=== PATIENT | male | born 1950 | race Caucasian/White ===

== ENCOUNTER 2023-12-16 05:59 | Day surgery (SDC) | payer OTHER, SELFPAY ==
--- NOTE | 2023-12-15 13:11 | PDOC.DSDIS_ITS ---
Date of service: 12/16/23 Time of Service: 09:21 Discharge Plan Disposition Patient Disposition: Home Condition: Good Discharge Details Reason For Visit: left inguinal hernia Attending Provider: Ethel Yoo Primary Care Provider: Harrison Marshall Home Meds and New Rx's Prescriptions: New tramadol 50 mg Tablet 50 mg PO Q4H PRN PRN (Reason: Pain) Qty: 14 0RF Continued losartan 50 mg tablet 50 mg PO DAILY nitroglycerin 0.4 mg tablet, sublingual 0.4 mg sublingual Q5M PRN Rx Instructions: do not exceed 3 doses per episode pantoprazole 40 mg tablet,delayed release (DR/EC) 40 mg PO DAILY Held aspirin 81 mg tablet,delayed release (DR/EC) 81 mg PO DAILY Hold Instructions: Resume on 12/22/23. clopidogrel 75 mg tablet 75 mg PO DAILY Hold Instructions: Resume on 12/22/23. Discharge Instructions Additional Instructions: Dr. Yoo HERNIA REPAIR ? POSTOPERATIVE INSTRUCTIONS Patients who have this type of surgery can usually be expected to return to work within two weeks and have minimal amounts of discomfort. ? ACTIVITY: The day of surgery should be spent resting. However, you can be up for short periods of time, I.E., going to the bathroom or kitchen. Avoid lifting or straining. On the day following surgery, you can be up and about as desired. ? LIFTING: Restrict your lifting to no more than five (5) pounds for two weeks after surgery. ??We will decide when you are done with restrictions and when you can return to work, at your follow-up appointment.? No sexual activity for two weeks.? ? DIET: There are no dietary restrictions following surgery. However, you may want to start with small amounts of liquids to avoid nausea the day of surgery. ? INCISION CARE: You will notice purple skin glue closing the incision.? Do not peel this off- it will wear off on its own.? After 24 hours you may shower. The dressing may be replaced for comfort, but is not necessary. ?An ice bag may be applied to the incision for 72 hours following surgery. ? SIGNS OF INFECTION: It is not unusual to have some black and blue discoloration of the skin around the incision, but also scrotum and penis.? ?It will slowly disappear. If you have any increased redness, drainage, fever (above 100 degrees), please contact your doctor for an examination. ? DISCOMFORT: You may expect to have some mild discomfort at the incision sight. If severe pain develops you should contact your doctor for further instructions. ? URINATION: Patients who have surgery occasionally have problems urinating. If you experience problems and are not able to urinate within 6 hours following your surgery, please call your doctor immediately or go to your nearest [facility] Room for evaluation. ? DRIVING: NO driving for three (3) days after surgery, or if you are still taking narcotic pain medication.? ? MEDICATIONS: Alternate Tylenol 1000mg by mouth every 8 hours and Ibuprofen 600mg every 6 hours. ?Make sure you take ibuprofen with food and not on an empty stomach. ?Take the Tylenol and ibuprofen continuously for the first 72hrs- not just when you have pain.? Use the tramadol for breakthrough pain/pain >7.? Use ICE!?? Twenty minutes on, and then off, continuously for the first 72hours. If you are taking narcotic pain medication, follow the instructions on the label and do not drive. Pain medications can make you very constipated. Make sure you are moving your bowels daily. If not, take Miralax or Milk of Magnesia.?? Anesthesia makes you very constipated.? Take a dose of milk of magnesia the morning after surgery. ? REPORT: Unusual swelling, severe pain, unresolved nausea, signs of infection, or difficulty in urination to your surgeon. Follow up in clinic with Dr. Yoo in 2 weeks.? [phone] Activity:: see above Remove Dressings/Wound Care:: 24 hours Shower/Bathe:: 24 hours Diet:: As Tolerated Discharge Orders Discharge Orders: Discharge Order (Routine); Ordered 12/16/23 Ordered By: Ethel Yoo DS: Diagnosis Discharge Diagnosis (1) CAD (coronary artery disease): Status: Chronic (2) Myocardial infarction: Status: Chronic (3) Left inguinal hernia: Status: Acute Asessment and Plan: The patient is doing well post-op from their left direct inguinal hernia surgery.? They are having no nausea or vomiting. They are tolerating liquids and a snack. The pt is not having any chest pain or SOB.? Their pain is adequately controlled. They have been able to urinate.? ?HEENT:? no eye pain/drainage/redness/swelling. Mild sore throat ?Cardio- NSR, no chest pain, BP stable- see VS record ?Pulm: no sob or productive cough. No hemoptysis ?Incision- dressing is c/d/i w/ no excessive bleeding or drainage ?I discussed with the patient the findings at the time of surgery and the patient?s progress. ?We reviewed expectations at home; what the patient could expect for recovery time, and in the post-operative period.? We discussed the importance of walking to avoid blood clots and pneumonia.? We discussed and reviewed the patient's post-operative wound care and dressing needs.?? We reviewed their step-thomas pain management plan, Rx called to the pharmacy of their choice.? We reviewed activity and limitations-see discharge instructions. We reviewed warning signs, and when to seek medical attention- see d/c instructions.?? Patient was given a postoperative follow-up appointment. Patient verbalized understanding of their postoperative instructions, how do to take care of themselves and their incision, and the pain management plan. Please see discharge instructions.? (4) Hyperlipidemia: (5) Parkinson disease:
--- NOTE | 2023-12-15 20:48 | HPE_ITS ---
Date of service: 12/16/23 Time of Service: 07:32 Assessment and Plan Assessment and plan (1) CAD (coronary artery disease): Status: Chronic (2) Myocardial infarction: Status: Chronic (3) Left inguinal hernia: Status: Acute Assessment and plan: I discussed the nature of inguinal hernias with the patient: how they form, and consequences of incarceration.? We discussed the warning signs of incarcerations (Severe pain/hardness and inability to reduce the hernia/vomiting/redness and fever) ?and when/how to seek medical attention (our office/PCP or ED).? ?I discussed the surgery in detail and the complications related to the surgery and the anesthesia.? I do recommend that the pt have a nerve block for postop pain control.? We also discussed multi-modality pain management.? Pt. expressed understanding; all questions were answered to the patient satisfaction and they do wish to proceed with surgery.? Patient was given an educational booklet & and a copy of the postop instructions and expressed understanding of how to care for themselves after surgery. Risks of the surgery include but are not limited to: Bleeding/infection/pneumonia/damage to blood vessels or bladder or?bowels/blood clots or PE/chronic pain/urinary retention/chronic numbness/reoccurrence/reaction to mesh requiring removal/damage to testicle or sterility/complications of anesthesia.?We also discussed the possibility of postop urinary retention and swelling/ bruising. ?The pt will have a pre-Op PE to ensure fitness for anesthesia, and preOp cardiac testing as deemed necessary. ?The procedure will be done with abx and under sterile conditions. This is an outpt day surgery.? ??The pt requires a ride home from surgery and someone to stay with the pt for 24 hrs after anesthesia.? No lifting over 5 pounds for 2-3 weeks after surgery.? Also take Miralax postop to avoid constipation. (4) Hyperlipidemia: (5) Inguinal hernia of left side without obstruction or gangrene: (6) Parkinson disease: History of Present Illness Narrative: Patient is here today for left inguinal hernia repair. They not having any chest pain or shortness of breath, currently.? They are not experiencing any fever or chills.? They deny any productive cough or upper respiratory tract infection signs or symptoms.? They are not having abdominal pain, or nausea and vomiting.? They have not had any changes in medications, past medical history or past surgical history since previously being seen in the office. They have not had any accidents or have been in the ER since the clinic pre-operative evaluation. ??I reviewed the procedure with the patient today, including risks and benefits of the procedure, and what they could expect at home for recovery.? All questions are answered to the patient?s satisfaction today, and they are stable to proceed with the proposed procedure. (2) Left inguinal hernia: I discussed the nature of inguinal hernias with the pt and how they form, and consequences of incarceration.? We discussed the warning signs of incarcerations (Severe pain/hardness and inability to reduce the hernia/vomiting/redness and fever) ?and when/how to seek medical attention (our office/PCP or ED).? ?I discussed the surgery in detail and the complications related to the surgery and the anesthesia.? I do recommend that the pt have a nerve block for postop pain control.? We also discussed multi-modality pain management.? Pt. expressed understanding; all questions were answered to the patient satisfaction and they do wish to proceed with surgery.? Patient was given an educational booklet & and a copy of the postop instructions and expressed understanding of how to care for themselves after surgery. Risks of the surgery include but are not limited to:Bleeding /infection/pneumonia/damage to blood vessels or bladder or?bowels/blood clots or PE/chronic pain/urinary retention/chronic numbness/reoccurrence/reaction to mesh requiring removal/damage to testicle or sterility/complications of anesthesia.?We also discussed the possibility of postop urinary retention or bruising. ?The pt will have a pre-Op PE to ensure fitness for anesthesia, and preOp cardiac testing as deemed necessary. ?The procedure will be done with abx and under sterile conditions. This is an outpt day surgery.? ??The pt requires a ride (3) Hyperlipidemia: (4) Parkinson disease: (5) CAD (coronary artery disease): (6) Myocardial infarction: HPI RN: Pt here for left ingunial hernia repair was set to have it repaired in Apr then had heart attack, with 2 stents placed at [facility]. Pt denies pain at this time, states standing on concrete seems to be the worst. [place] 05/17. Plavix 04/2024. Patient recently saw his tomb maker helper at the [facility] that said it was safe for him to come off of the aspirin and Plavix for his surgery. Realistically I think I would just stop the Plavix and except the risk of bleeding or bruising and keep him on the baby aspirin. The patient understands the plan agrees. He has had this inguinal hernia for some time. Doing physical activity does aggravate it, and occasionally when trying to move his bowels. On exam today I cannot reduce the hernia. It is mildly tender. It is not incarcerated. He had a right inguinal hernia repair done remotely. He had no problems with the mesh, the surgery, the anesthesia. We reviewed today what he can expect during hernia surgery, recovery time, and risks. Patient does wish to have the procedure done. Again he did get clearance from his tomb maker helper at the [facility]. they were able to obtain this paperwork. Review of Systems All systems reviewed & are unremarkable except as noted in HPI and below PFSH All Active Problems Myocardial infarction (Chronic) 05/17. Treated with 2 stents at [facility] [place]. CAD (coronary artery disease) (Chronic) Left inguinal hernia (Acute) Jaw claudication (Acute) Tremor (Chronic) Numbness of foot (Chronic) Medical History Inguinal hernia of left side without obstruction or gangrene (~04/2023) PTSD (post-traumatic stress disorder) Per no potential triggers Parkinson disease Hyperlipidemia Failure of erection Tremor Surgical History History of cataract surgery History of colonoscopy S/P right inguinal hernia repair (~2012) Family History Father Heart disease Social History Smoking/Tobacco Use Status: Never Smoking risk assessment performed?: Yes Alcohol Intake: current Alcohol Intake frequency: a few times a week Drug use: Never Substance use type: does not use Household members: none Housing: house Number of Children: 2 current occupation: Retired. [employer] work Current gender identity: male Do you feel safe at home: Yes Do you feel safe in your relationship?: Yes Additional Social history: UTAP Meds Allergies and Home Medications Allergies Allergy/AdvReac Type Severity Reaction Status Date / Time [id number] Reductase Allergy Severe leg cramps Verified 12/16/23 06:20 Inhibitor Home Medications ?Medication ?Instructions ?Recorded ?Confirmed ?Type aspirin 81 mg tablet,delayed 81 mg PO DAILY 11/12/23 12/16/23 History release clopidogrel 75 mg tablet 75 mg PO DAILY 11/12/23 12/12/23 History losartan 50 mg tablet 50 mg PO DAILY 11/12/23 12/16/23 History nitroglycerin 0.4 mg sublingual 0.4 mg sublingual Q5M PRN 11/12/23 12/16/23 History tablet pantoprazole 40 mg tablet,delayed 40 mg PO DAILY 11/12/23 12/16/23 History release tramadol 50 mg tablet 50 mg PO Q4H PRN PRN Pain #14 tabs 12/15/23 Rx Exam Narrative Exam Narrative: PHYSICAL EXAM GENERAL APPEARANCE: Alert, healthy appearance, oriented, x 3,? in no acute distress HYDRATION: Well hydrated HEAD, EYES, EARS, NECK, THROAT: Head is normocephalic, pupils equal, round, reactive to light and accommodation, ocular movement intact, sclera clear and no jaundice. ?Dentition intact. LUNGS: normal respiration/normal chest excursion. ?Clear to auscultation bilaterally. ?No wheeze. ?HEART: Regular rate and rhythm. no murmurs? ABDOMEN: soft and non-tender to palpation.? Normal bowel sounds.? left inguinal hernia. s/p R inguinal hernia repair. Time Spent Time spent with Patient: <40 minutes Time was spent: preparing to see the patient(eg.review tests), obtaining and/or reviewing separately otained hiistory, ordering medications,tests, procedures, referring, communicating with other health pulmonary care nurse, indepentently interpreting results, counseling the patient, care coordination and other
[2023-12-16] VITALS (20 sets, daily range): BP systolic 104–159; BP diastolic 52–86; PULSE 56–74; RESP 14–23; TEMP 36.1–37; O2SAT 94–100; BMI 26.9
[2023-12-16] MEDS: Acetaminophen 500 MG TAB 1000 MG PO (07:07)
[2023-12-16] MEDS: Lactated Ringers 1,000 ML 80 ML IV (07:07)
[2023-12-16] MEDS: Gabapentin 300 MG CAP 600 MG PO (07:08)
--- NOTE | 2023-12-16 07:19 | W.ANESPRE ---
General Info Date of Service Date Performed: 12/16/23 Height: 5 ft 9 in Weight: 82.5 kg Body Mass Index (BMI): 26.9 Surgical Procedure: Operation Date: 12/16/23 07:40 Proposed Procedure Side Surgeon p Herniorrhaphy Inguinal w/Mesh Left Ethel Yoo DO Pre-Op Diagnosis Post-Op Diagnosis Left inguinal hernia Meds Allergies and Home Medications Allergies Allergy/AdvReac Type Severity Reaction Status Date / Time [id number]-[id number] Reductase Allergy Severe leg cramps Verified 12/16/23 06:20 Inhibitor Home Medication ?Medication ?Instructions ?Recorded aspirin 81 mg tablet,delayed 81 mg PO DAILY 11/12/23 release clopidogrel 75 mg tablet 75 mg PO DAILY 11/12/23 losartan 50 mg tablet 50 mg PO DAILY 11/12/23 nitroglycerin 0.4 mg sublingual 0.4 mg sublingual Q5M PRN 11/12/23 tablet pantoprazole 40 mg tablet,delayed 40 mg PO DAILY 11/12/23 release tramadol 50 mg tablet 50 mg PO Q4H PRN PRN Pain #14 tabs 12/15/23 Current Visit Medications: Current Medications Generic Name Dose Route Start Last Admin Trade Name Freq PRN Reason Stop Dose Admin Acetaminophen 1,000 mg 12/16/23 05:00 12/16/23 07:07 Acetaminophen 500 Mg Tab PO 12/16/23 16:00 1,000 mg PREOP CHLOE Administration Gabapentin 600 mg 12/16/23 05:00 12/16/23 07:08 Gabapentin 300 Mg Cap PO 12/16/23 16:00 600 mg PREOP CHLOE Administration Ringer's Solution 1,000 mls @ 80 mls/hr 11/25/23 06:00 12/16/23 07:07 IV 12/24/23 23:59 80 mls/hr INFUSION CHLOE Administration Cefazolin Sodium/Dextrose 2 gm in 50 mls @ 100 mls/hr 12/16/23 05:00 Ancef Duplex IVPB 12/16/23 16:00 PREOP CHLOE Ondansetron HCl 4 mg/ Sodium 52 mls @ 200 mls/hr 12/16/23 01:08 Chloride IVPB 01/15/24 01:07 Q6H PRN PRN IV Miscellaneous Supplies 1 each 11/25/23 06:00 Iv Access IV 07/31/24 23:59 DIRECTED CHLOE Ketorolac Tromethamine 15 mg 12/16/23 01:08 Ketorolac 15 Mg/Ml Vial IVP 12/21/23 01:07 Q6H PRN PRN Morphine Sulfate 2 mg 12/16/23 01:08 Morphine 4 Mg/Ml Syr IVP 01/15/24 01:07 Q1H PRN PRN Sodium Chloride 0 ml 11/25/23 06:00 Normal Saline Flush 10 Ml Syr IV 12/24/23 23:59 PRN PRN Sodium Chloride 0 ml 11/25/23 06:00 Normal Saline 10 Ml Vial IJ 12/24/23 23:59 DIRECTED PRN Sterile Water 0 ml 11/25/23 06:00 Water,Injection,Sterile 10 Ml Vial IJ 12/24/23 23:59 DIRECTED PRN Tramadol HCl 50 mg 12/16/23 01:08 Tramadol 50 Mg Tab PO 01/15/24 01:07 Q4H PRN PRN Pain PFSH Active Problems Active Problems: Problem Status Onset Code Myocardial infarction Chronic I21.9 CAD (coronary artery disease) Chronic I25.10 Left inguinal hernia Acute K40.90 Jaw claudication Acute M26.69 Tremor Chronic R25.1 Numbness of foot Chronic R20.0 Medical History Medical History Inguinal hernia of left side without obstruction or gangrene (~04/2023) PTSD (post-traumatic stress disorder) Per no potential triggers Parkinson disease Hyperlipidemia Failure of erection Tremor Surgical History Surgical History History of cataract surgery History of colonoscopy S/P right inguinal hernia repair (~2012) Tobacco Smoking/Tobacco Use Status: Never Alcohol Alcohol Intake: current Alcohol intake frequency: a few times a week Substance Use Substance use: Never Substance use type: does not use Vital Signs and Lab Results Vital Signs Most Recent Vital Signs in EMR: Most Recent Vital Signs Temp Pulse Resp BP Pulse Ox 37.0 C 66 16 159/86 H 97 12/16/23 07:13 12/16/23 07:13 12/16/23 07:13 12/16/23 07:13 12/16/23 07:13 Lab Results Blood Type / Crossmatch: No Data to Display Complete Blood Count: No Data to Display Complete Metabolic Panel: No Data to Display Liver Function Panel: No Data to Display Coagulation Panel: No Data to Display Cardiac Panel: No Data to Display Arterial Blood Gas: No Data to Display Venous Blood Gas: No Data to Display Pancreas Panel: No Data to Display Thyroid Panel: No Data to Display Infectious Disease: No Data to Display Blood Cultures: No Data to Display Toxicology Panel: No Data to Display Anesthesia Assessment and Plan Anesthesia History Personal History: No History of Anesthesia Complications Family History: Family History Unknown Exercise Tolerance Exercise Tolerance: Metabolic Equivalents>4 Pertinent Negatives Pertinent Negatives: No Symptoms of GERD, No Major Pulmonary Symptoms or Complaints and No History of CVA/TIA Cardiac & Pulmonary Exam Cardiac Exam: Normal S1/S2 Heart Sounds Pulmonary Exam: Clear Bilateral Breath Sounds Implantable Cardiac Device Does patient have a Pacemaker or an ICD?: No Airway Exam Known Difficult Airway: No Mallampati Class: 2 Mouth Opening: Normal (> 3cm) Thyromental Distance: Greater than 3 cm Neck Range of Motion: Full ROM Neck Circumference: Normal Teeth Condition: Normal Dentition and Removable Dentures/Plates Upper ASA Classification ASA Score: ASA 3 Emergency Case?: No NPO Status NPO Status: NPO Clears >2 hours, Solids >8 hours Anesthesia Plan Resuscitation Status: Full Code Anesthesia Technique: General Anesthesia Airway Planned: LMA Pain Management: Surgeon and patient request nerve block Monitors Used: Standard Monitors
[2023-12-16] MEDS: ceFAZolin 2 GM/50 ML BAG IVPB (07:38)
--- NOTE | 2023-12-16 08:00 | ANES.NERVE_ITS ---
Nerve Block Single Injection Procedure Date and Time Date Performed: 12/16/23 Procedure Start: 07:49 Location Where Procedure Performed Procedure Location: Operating Room Procedure Stop: 07:57 Reason Performed: Postoperative Analgesia Requesting Provider: Ethel Yoo Timeout Performed Timeout Performed: Yes Monitoring Used ECG, Blood Pressure, SpO2 and See EMR for corresponding vital signs Sterility Sterility: Hand Hygiene, Surgical Cap, Surgical Mask, Sterile Gloves and Ch lorhexidine Sedation Given During Procedure Sedation Given (Indicate Dose Given): No Sedation given Patient Mental Status Patient Mental Status: Performed under general anesthesia Nerve Block 1st Nerve Block: Laterality: Left Block Type: TAP Unilateral Ultrasound Image Saved?: Yes Needle / Catheter Used: 100mm SonoPlex II Local Anesthetic Bolus (Indicate Dose Given): Lidocaine used for local infiltration of skin, Injected in 3-5ml increments after negative blood aspiration, Bupivacaine 0.25% Dose:: 20ml and Exparel Dose:: 10ml Additives (Indicate Dose Given): None Ultrasound: Sterile probe cover and gel used Nerve Stimulator: Not Used Paresthesia: None Procedure Tolerated: No Complications and Patient tolerated well Procedure Outcome: Successful Performed By: Diaz Pratt
[2023-12-16] MEDS: Bupivacaine 0.25% Pres-Free W/EPI 30 ML VIAL (08:13)
--- NOTE | 2023-12-16 09:13 | W.PM.OP ---
Date of service: 12/16/23 Time of Service: 09:13 Operative Note Operative Note DATE OF PROCEDURE: 12/16/23 PRE-OP DIAGNOSIS: Left inguinal hernia POST-OP DIAGNOSIS: same (In direct) PROCEDURE: Open inguinal hernia with mesh SURGEON: Ethel Frias COMMUNITY ENGAGEMENT COORDINATOR: Varsha Castañeda ANESTHESIA TYPE: Local By Surgeon and General LMA/ETT Refer to Anesthesia Record ESTIMATED BLOOD LOSS: 5 PATHOLOGY: none sent COMPLICATIONS: None Patient was transported to: PACU Patient's condition: stable Procedure Description: INDICATIONS: The pt is here today for surgery regarding symptomatic -left-- inguinal hernia that has failed outpatient conservative medical management and he is here today for repair. Informed consent was obtained, explaining risks and benefits of the procedure including but not limited to bleeding, infection, pneumonia, blood clots, chronic pain, chronic numbness, damage to testicle resulting in removal, recurrence of hernia, reaction to Mesh necessitating removal, and other unforetold complications, and complications of anesthesia-which were addressed by the MANAGER M[facility]AGE DEPARTMENT. The patient is marked in preOp prior to the procedure DESCRIPTION OF PROCEDURE:? The pt is then brought to the operative room suite. Anesthesia was administered per the Department of Anesthesia. ?A nerve block was performed by anesthesia under US guidance. The patient was prepped and draped in the usual sterile fashion using ChloraPrep scrub solution. Pause for the cause was done. He did receive preop IV antibiotics, and 30 mL of .25% Marcaine w/ epinephrine was used for local anesthetization. A #12 blade was used to make an incision over the external ring. Electrocautery used to provide hemostasis and dissect down to the fascia. The fascia was pretty much obliterated and there was nothing to open. The cord is elevated. The nerve was not identified. There is a cord lipomas- that is ecised w/ cautery. .? Electro-cautery is used to provide hemostasis. A Holli drain was placed around the cord to assist in mobilization. The cord was explored. ?There was is large hernia sac on the cord. There is no direct hernia pushing through the floor. The hernia sac is dissected off the cord using a combination of blunt dissection and electrocautery.? Electrocautery is used to provide hemostasis.?? There are no contents within the hernia sac.?High Ligation of the hernia sac is performed, the hernia sac is than inverted and returned to the abdominal cavity.? A large size plug is than inserted into the defect through the internal ring, and over sewn to tighten up the ring with 2-0 vicryl.? Please see RN notes from [employer] number of the [employer] mesh patch/plug.? The cord structures are still able to freely move through the ring itself.? The patch was then placed onto the floor, and using 2-0 Vicryl, sewn into the pubic tubercle and the shelving portions of the inguinal ligament, in the standard Lichenstein fashion.? ?The tails of the mesh are brought around the cord, sewn together w/ 2-0 Vicryl, and tucked under the external oblique.? The wound was copiously irrigated. There was no bleeding noted. The drain was removed. All structures are returned to normal anatomical position. The nerve is not sewn into the mesh, nor caught up in any sutures. The external oblique is dissected out and is re-approximated using 2-0 vicryl in a running fashion. ?Deep tissue was approximated with 3-0 Vicryl in a running fashion, and skin was approximated with 4-0 Monocryl in a running subcuticular fashion. Skin glue and sterile dressings are applied. The patient tolerated the procedure without complications to recovery in stable condition. ETHEL FRIAS, DO
--- NOTE | 2023-12-16 11:13 | W.ANESPOSTOP ---
Postoperative Evaluation Date, Time and Location Date Performed: 12/16/23 Time Performed: 10:25 Patient Location: Day Surgery Unit Vital Signs Most Recent Imported Vital Signs: Most Recent Vital Signs Temp Pulse Resp BP Pulse Ox 36.3 C L 56 L 17 130/79 97 12/16/23 10:22 12/16/23 10:22 12/16/23 10:22 12/16/23 10:22 12/16/23 10:22 Pain Score Most Recent Pain Score: Most Recent Pain Score Pain Level 0 12/16/23 10:22 Assessment Mental Status: Awake (Alert & Oriented to Patient Baseline) Airway and Respiratory Function: Patent airway with normal (patient baseline) respiratory exam Cardiovascular Function: Hemodynamically Stable Hydration Status: Adequately Hydrated Nausea & Vomiting: No Nausea or Vomiting Pain: Pt. Denies Any Pain Peripheral Nerve Block: Regional nerve block not resolved at time of post operative discharge
== END 2023-12-16 11:19 | disposition home or self-care (01) ==
PROVIDERS: PCP Family Medicine; Visit Provider Surgery
PROC: (CPT 49505; principal; 2023-12-16 07:30)
DX: K40.90 Unilateral inguinal hernia, without obstruction or gangrene, not specified as recurrent
CPT/HCPCS: 49505; 76942; C1781; C9290; J0665; J0690; J1100; J1885; J2001; J2371; J2405; J2704

== ENCOUNTER 2024-06-24 14:01 | Emergency (ER) | payer OTHER, SELFPAY ==
--- NOTE | 2024-06-24 14:00 | RT.EKG_ITS ---
APPROVED REPORT Exam: Resting ECG Reason for Exam: weakness Patient Location: E HR:70 bpm ECG Measurements Heart Rate 70 AXIS MO 144 P 49 QRSd 89 QRS 65 QT 382 T 48 QTc 412 Conclusion Sinus rhythm...normal P axis, V-rate 60- 99
[2024-06-24 14:12] VITALS: BP 158/80; PULSE 68; RESP 15; TEMP 36.6; O2SAT 96
--- NOTE | 2024-06-24 14:45 | DI.RAD_ITS ---
Exam(s) XR CHEST 2V PA LATERAL EXAM: XR CHEST 2V PA LATERAL CLINICAL HISTORY: ?chf. TECHNIQUE: 2D digital imaging was performed. COMPARISON: No exams were available for comparison FINDINGS: 2 views: Heart size is normal. The mediastinum is not widened. Lungs are clear. No infiltrates nor pleural effusions. No evidence of pulmonary edema, as per reque st. IMPRESSION: No acute pulmonary findings. DATA REPOSITORY: RADIATION DOSE DELIVERED:
--- NOTE | 2024-06-24 14:47 | W.ED.GENAD ---
Discharge Plan Disposition Patient Disposition: Home Condition: Stable Discharge Details Clinical Impression: Fatigue Primary Care Provider: Harrison Marshall ED Provider: Ian Shelley Home Meds and New Rx's Prescriptions: Continued clopidogrel 75 mg tablet 75 mg PO DAILY losartan 50 mg tablet 50 mg PO DAILY nitroglycerin 0.4 mg tablet, sublingual 0.4 mg sublingual Q5M PRN Rx Instructions: do not exceed 3 doses per episode pantoprazole 40 mg tablet,delayed release (DR/EC) 40 mg PO DAILY No Action aspirin 81 mg tablet,delayed release (DR/EC) 81 mg PO DAILY Discharge Instructions Additional Instructions: Your blood work and chest x-ray did not show any concerning findings Follow-up with your primary care provider if symptoms continue in 1 to 2 weeks If you feel more ill or have new symptoms such as severe chest pain return to the emergency department for reevaluation HPI General Mode of arrival: ambulatory. Date/Time Provider Initiated Documentation: 06/24/24 14:08. Limitations to Documentation: no limitations. Information obtained by: patient. HPI Narrative: HISTORY OF PRESENT ILLNESS The patient presents for evaluation of fatigue. He reports persistent fatigue, characterized by excessive sleepiness. He is not experiencing any chest pain, respiratory distress, or episodes of vomiting. Additionally, he does not have any lower extremity discomfort or edema. Related Data Home Medications ?Medication ?Instructions ?Recorded ?Confirmed aspirin 81 mg tablet,delayed 81 mg PO DAILY 11/12/23 06/24/24 release clopidogrel 75 mg tablet 75 mg PO DAILY 11/12/23 06/24/24 losartan 50 mg tablet 50 mg PO DAILY 11/12/23 06/24/24 nitroglycerin 0.4 mg sublingual 0.4 mg sublingual Q5M PRN 11/12/23 06/24/24 tablet pantoprazole 40 mg tablet,delayed 40 mg PO DAILY 11/12/23 06/24/24 release Allergies Allergy/AdvReac Type Severity Reaction Status Date / Time Eknkotw-QBC-ExR Reductase Allergy Severe leg cramps Verified 06/24/24 14:15 Inhibitor General Stated Complaint: [facility] ARABELLA: 3 Review of Systems Narrative: REVIEW OF SYSTEMS Negative for chest pain, respiratory distress, or episodes of vomiting. Negative for lower extremity discomfort or edema. Exam Narrative Exam Narrative: PHYSICAL EXAM Lungs are clear. Abdomen is soft and nontender. No JVD Const General: no acute distress Orientation: alert HENMT Head: normal to inspection Ears: external ears normal General nose exam: external nose normal Mouth: moist mucous membranes Eyes General: appearance normal, both eyes and all related structures Neck Neck: normal visual inspection Resp Effort & Inspection: normal respiratory effort and able to speak in complete sentences Auscultation: clear to auscultation bilaterally Cardio Jugular venous pressure: no JVD Rate: regular rate Skin General skin exam: no rashes or lesions noted Neuro General: patient alert and patient oriented x3 Extrem General: normal to inspection, capillary refill normal and no pedal edema Course Vital Signs Vital signs: Vital Signs Temperature 36.6 C 06/24/24 14:12 Pulse 68 06/24/24 14:12 Respiratory Rate 15 06/24/24 14:12 Blood Pressure 158/80 H 06/24/24 14:12 Pulse Oximetry 96 06/24/24 14:12 Temperature 36.6 C 06/24/24 14:12 Temperature Source Oral 06/24/24 14:12 Pulse 68 06/24/24 14:12 Respiratory Rate 15 06/24/24 14:12 Blood Pressure 158/80 H 06/24/24 14:12 Blood Pressure Position Sitting 06/24/24 14:12 Pulse Oximetry 96 06/24/24 14:12 Oxygen Delivery Method Room Air 06/24/24 14:12 Oxygen Flow Rate 0 06/24/24 14:12 Medical Decision Making ASSESSMENT AND PLAN 1. Fatigue. He reports feeling tired all the time and sleeping a lot. His lungs sound clear, and his abdomen is soft and nontender. Blood work and a chest x-ray have been ordered to further investigate the cause of his fatigue. He is well-appearing has no chest pain so I doubt entities such as ACS but will check troponins. No tearing back pain to suggest dissection. this patient consented to using [facility] cop[employer] Patient's lab work shows no significant findings, has a creatinine of 1.4 and unclear if this is new or not. Delta troponin negative, chest x-ray negative. He is stable and still appears well. Discussed results with him and given reassuring workup feel he is stable for discharge and can follow-up with his PCP if symptoms continue. When he had his flulike symptoms he never checked for COVID which if it was he could be experiencing long COVID symptoms. Return precautions given Medical Records Medical records reviewed: Yes I reviewed the patient's medical records. Lab Data Lab results reviewed: Yes I reviewed the patient's lab results. ECG Data Attestation: I personally reviewed and interpreted this ECG (s) as follows: Prior ECG tracings: not available for review Quality:SDOH Health Related Social Needs: No Data to Display PFSH All Active Problems (Updated 06/24/24 @ 16:51 by Ian Shelley MD) Fatigue (Acute) Myocardial infarction (Chronic) 05/17. [place] 2 [place] [facility] [place] [facility] [place] CAD (coronary artery disease) (Chronic) Left inguinal hernia (Acute) Jaw claudication (Acute) Tremor (Chronic) Numbness of foot (Chronic) Medical History (Updated 06/24/24 @ 16:51 by Ian Shelley MD) Inguinal hernia of left side without obstruction or gangrene (~04/2023) PTSD (post-traumatic stress disorder) Per no potential triggers Parkinson disease Hyperlipidemia Failure of erection Tremor Surgical History (Updated 12/17/23 @ 14:26 by Anne Arreguin) Hx of inguinal hernia repair (~11/2023) left side History of cataract surgery History of colonoscopy S/P right inguinal hernia repair (~2012) Family History Father Heart disease Social History Smoking/Tobacco Use Status: Never Smoking risk assessment performed?: Yes Alcohol Intake: current Alcohol Intake frequency: a few times a week Drug use: Never Substance use type: does not use Household members: none Housing: house Number of Children: 2 current occupation: Retired. [employer] work Current gender identity: male Do you feel safe at home: Yes Do you feel safe in your relationship?: Yes Additional Social history: UTAP POCUS Exam (ED) Limited Cardiac Exam REASON FOR EXAM: Other indication: fatigue, coronary artery disease VISUALIZED STRUCTURES: Left ventricle and Right ventricle VIEW OBTAINED: Parasternal long-axis PERTINENT FINDINGS/IMPRESSION: No LV dysfunction Exam complete
[2024-06-24 15:13] LABS: Abs Immature Grans 0.02 10^3/uL (0.0-0.06); Absolute Basophil Count 0.03 10^3/uL (0.0-0.2); Absolute Eosinophil Count 0.06 10^3/uL (0.0-0.7); Absolute Lymphocyte Count 1.14 10^3/uL (1.2-3.4); Absolute Monocyte Count 0.48 10^3/uL (0.1-0.8); Absolute Neutrophil Count 6.18 10^3/uL (1.2-6.7); Basophils % 0.4 %; Eosinophils % 0.8 %; HCT 48.7 % (40.0-50.0); HGB 16.2 g/dL (13.5-17.5); Immature Grans % 0.3 %; Lymphocytes % 14.4 %; MCH 28.9 pg (27.0-33.0); MCHC 33.3 % (32.0-36.0); MCV 87 fL (80-95); MPV 8.6 fL (8.0-11.0); Monocytes % 6.1 %; Platelet Count 360 10^3/uL (130-400); RBC 5.61 10^6/uL (4.36-5.78); RDW 12.7 % (11.8-14.1); RDW-SD 40.1 fL; WBC 7.91 10^3/uL (4.4-10.8)
[2024-06-24 15:24] LABS: Bilirubin Negative (Negative); Blood Negative (Negative); Clarity Clear (Clear); Glucose Negative (Negative); Ketones Negative (Negative); Leukocyte Esterase Negative (Negative); Nitrite Negative (Negative); Urobilinogen 0.2 mg/dL (Up to 0.2); pH 5.5 (5-8)
[2024-06-24 15:38] VITALS: PULSE 78; RESP 18; RESP 20; TEMP 36.8; O2SAT 98
[2024-06-24 15:40] LABS: ALT 27 U/L (16-63); AST 16 U/L (15-37); Albumin 3.9 g/dL (3.4-5.0); Alkaline Phosphatase 90 U/L (46-116); Anion Gap 4.3 mmol/L (3-11); BUN 18 mg/dL (7-18); Bilirubin, Total 0.48 mg/dL (0.2-1.0); CO2 31.7 mmol/L (21.0-32.0); CREATININE 1.4 mg/dL (0.70-1.30); Calcium 9.7 mg/dL (8.5-10.1); Chloride 104 mmol/L (98-107); Estimated GFR 52.74 (mL/min/1.73m2); Glucose 114 mg/dL (74-106); NT-proBNP 77 pg/mL (<300); Potassium 4.4 mmol/L (3.5-5.1); Sodium 140 mmol/L (136-145); TSH (W/Ref FT4) 3.32 uIU/mL (0.36-3.74); Total Protein 7.4 g/dL (6.4-8.2); Troponin I 51 ng/L (<or=76)
[2024-06-24 15:49] LABS: COVID-19 PCR Negative (Negative); Influenza A PCR Negative (Negative); Influenza B PCR Negative (Negative); RSV PCR Negative (Negative)
[2024-06-24 15:50] LABS: Source Nasopharynx
[2024-06-24 16:04] VITALS: BP 132/80; PULSE 69; RESP 18; O2SAT 98
[2024-06-24 16:32] LABS: Troponin I 53 ng/L (<or=76)
[2024-06-24 17:05] VITALS: BP 145/80; PULSE 63; RESP 16; TEMP 36.8; O2SAT 98
--- NOTE | 2024-06-26 13:05 | NUR.NOTE ---
Access chart to reconcile EKG orders with EKG's in [facility]. Duplicate order cancelled. Nursing Note:
== END 2024-06-24 17:08 | disposition home or self-care (01) ==
PROVIDERS: Emergency Provider Emergency Medicine; PCP Family Medicine
DX: R53.1 Weakness (principal); G20.A1 Parkinson's disease without dyskinesia, without mention of fluctuations; E78.5 Hyperlipidemia, unspecified; I25.10 Atherosclerotic heart disease of native coronary artery without angina pectoris; I25.2 Old myocardial infarction; Z95.1 Presence of aortocoronary bypass graft; Z95.5 Presence of coronary angioplasty implant and graft; Z79.01 Long term (current) use of anticoagulants; Z79.82 Long term (current) use of aspirin
CPT/HCPCS: 36415; 80053; 87637; 93005; 93308; 99285; 71046; 81003; 83735; 83880; 84443; 84484; 85025; 93010; 99284